=== PATIENT | female | born 2000 | race Caucasian/White ===

== ENCOUNTER 2019-10-01 18:35 | Emergency (ER) | payer BC, SELFPAY ==
[2019-10-01 18:48] VITALS: BP 109/67; RESP 20; TEMP 37.1; O2SAT 100
--- NOTE | 2019-10-01 18:50 | ED.GENADULT ---
HPI - General Adult General Chief complaint: Upper Respiratory Infection Stated complaint: cough/ear pain/sinus Time Seen by Provider: 10/01/19 18:51 Source: patient and RN notes reviewed Mode of arrival: ambulatory Limitations: no limitations History of Present Illness HPI narrative: 19-year-old female presents with male guess (kenney to speak freely while present), Yesenia complains of upper respiratory infection, facial congestion, facial pressure, bilateral ear clogging and otalgia, cough, and intermittent wheezing for the past 7 days. Fani[place] cold and cough (last today at 15:00) without relief. Symptoms increased over the past 1-2 days. No facial swelling. Dry cough. Nasal congestion and rhinorrhea. No chest pain or shortness of breath. No exacerbating factors. Denies fever or chills. Denies nausea, vomiting, and abdominal pain. Tolerating po intake well. Remains active. [place] denies being , LMP 2 weeks ago and uses control. Some parts of this dictation were generated by voice recognition software and may contain typographical and/or grammatical inaccuracies. Related Data Home Medications Medication Instructions Recorded Confirmed norethindrone-e.estradiol-iron 1 tablet PO DAILY 10/01/19 10/01/19 [[place] Fe 1.5/30 (28)] Allergies Allergy/AdvReac Type Severity Reaction Status Date / Time No Known Allergies Allergy Unknown Verified 10/01/19 18:48 Review of Systems Review of Systems: Narrative: CONSTITUTIONAL: Denies fever, chills, sweats. EYES: Denies visual changes, redness, discharge. ENT: Complains of rhinorrhea, congestion, facial congestion and pressure, bilateral otalgia. Denies sore throat. CARDIOVASCULAR: Denies chest pain, palpitations, edema. RESPIRATORY: Denies dyspnea. Complains of dry cough, wheezing. GASTROINTESTINAL: Denies abdominal pain, nausea, vomiting, diarrhea. GENITOURINARY: Denies dysuria, hematuria, abnormal discharge SKIN: Denies rash or itching. MUSCULOSKELETAL: Denies acute back pain, joint pain, or myalgia. NEUROLOGIC: Denies numbness or focal weakness. PSYCHIATRIC: Denies anxiety or depression. [facility] Surgical History Surgical History (Updated 10/01/19 @ 18:56 by JAMES Iraheta) History of tonsillectomy Comments At time of signature, agree with nurse past medical, surgical, social, and family history. There is no relevant family history pertinent to the presenting complaint. Exam Narrative: Exam Narrative: GENERAL: This is a well-nourished, well-developed patient, in no apparent distress. Talks in full sentences and ambulates with steady gait without dyspnea. HEAD: normocephalic, atraumatic. EYES: PERRL. Sclera clear/white. Vision is grossly intact. EARS: External ears normal, auditory canals clear and without drainage, TMs normal without perforation. Hearing grossly intact. NOSE: External nose normal with no obvious nasal discharge, nares with mild redness and enlarged turbinates, clear rhinorrhea. SINUSES: Moderate tenderness upon palpation to maxillary sinus. MOUTH: moist mucous membranes. Geographic tongue THROAT: Mucous membranes moist, posterior pharynx clear. PND, mild erythema, no tonsils. No drainage, No drooling, trismus, or neck swelling. NECK: Neck supple, non-tender without lymphadenopathy, masses or thyromegaly. CARDIOVASCULAR: Regular rate and rhythm without murmurs, gallops, or rubs. RESPIRATORY: Clear to auscultation. Breath sounds equal bilaterally. No wheezes, rales, or rhonchi. GASTROINTESTINAL: Abdomen soft, non-tender, nondistended. Bowel sounds are active. No hepato-splenomegaly, or palpable masses. No guarding. SKIN: warm, intact with no suspicious lesions or rash, good texture and turgor. NEURO: awake, alert, and oriented to person, place and time. There were no obvious focal neurologic abnormalities. EXTREMITIES: No clubbing, cyanosis, or edema. Soha Coma Scale Eye Opening: Spontaneous 4 Soha Coma Scale Motor:
== END 2019-10-01 19:10 | disposition home or self-care (01) ==
PROVIDERS: Emergency Provider Nurse Practitioner Family
DX: J40 Bronchitis, not specified as acute or chronic (principal); J01.00 Acute maxillary sinusitis, unspecified
CPT/HCPCS: 99213; G0463

== ENCOUNTER 2019-10-14 19:31 | Emergency (ER) | payer BC, SELFPAY ==
[2019-10-14 19:40] VITALS: BP 153/88; PULSE 95; RESP 18; TEMP 36.8; O2SAT 100
--- NOTE | 2019-10-14 20:22 | ED.BACK ---
HPI - Back Pain/Injury General Chief Complaint: Urogenital-Female Stated Complaint: UTI symptoms Source: patient and RN notes reviewed Mode of arrival: ambulatory Limitations: no limitations History of Present Illness HPI Narrative: The patient, non-smoker/nondrinker, presents with back pains. Patient states she was seen here the end of September about 10 days ago and treated for upper respiratory infection with amoxicillin, prednisone and other supportive medications-for which she seems to state that is improved. She now has 1/2-week history of low back pain which is also associated with large joint myalgias. She complains of pain in her large joints hips >bilateral armpits, knees. She said this also involved the small joints of her hands yesterday, which seems improved. No fever, rash, weight loss, vomiting/diarrhea, frequency/dysuria, vaginal discharge, mucosal /eye changes. joint pains are mild, worse upon awakening the morning, slightly better with activity. Discussed possible causes [ post infectious, immune, acquired ], advised to go to [facility], [facility] for higher level testing and treatment Related Data Allergies Allergy/AdvReac Type Severity Reaction Status Date / Time No Known Allergies Allergy Unknown Verified 10/01/19 18:48 Review of Systems Review of Systems: Narrative: General/Constitutional: No weight loss,fever Eyes: N0: Redness,discharge Ears/Nose/Throat: No: Epistaxis,ear discharge Respiratory: Denies: Hemoptysis Gastrointestinal: No Vomiting, Bleeding-rectal Skin: No Lumps, eruption Neurologic: No Focal Weakness,Sz Hematologic: Denies: Petechiae/Purpura PMFSH Surgical History Surgical History (Updated 10/01/19 @ 18:56 by JAMES Iraheta) History of tonsillectomy Social History Social History Gender identity (if verbalized by the patient): Female Comments At time of signature, agree with nursing past medical, surgical, social and family history. There is no relevant family history pertinent to the presenting complaint Exam Narrative: Exam Narrative: General Appearance: Well appearing, No distress EYE: PERRLA, Conjunctiva clear Ears: External ear normal Nose: Normal nose Mouth/Throat: Normal appearing, Normal lips Neck: Supple Respiratory: Airway patent, No respiratory distress Cardiovascular: RRR Abdomen: Soft, Non-tender, No massess, No organomegaly s Musculoskeletal: Full strength & ROM Skin: Warm, Dry Neurological: A&O x3, CN II-X intact Psychiatric: Normal mood, Normal affect Course Vital Signs Vital signs: Vital Signs Temperature 98.3 F 10/14/19 19:40 Pulse Rate 95 10/14/19 19:40 Respiratory Rate 18 10/14/19 19:40 Blood Pressure 153/88 H 10/14/19 19:40 Pulse Oximetry 100 10/14/19 19:40 Temperature 98.3 F 10/14/19 19:40 Pulse Rate 95 10/14/19 19:40 Respiratory Rate 18 10/14/19 19:40 Blood Pressure 153/88 H 10/14/19 19:40 Pulse Oximetry 100 10/14/19 19:40 MDM - Back Pain/Injury Lab Data Labs: Urine Glucose Negative Reference Range: Negative Urine Bilirubin Negative Reference Range: Negative Urine Ketone Negative Reference Range: Negative Urine Specific [place] 1.020 Reference Range:1.001-1.035 Urine Blood Negative Reference Range: Negative * * Urine pH 7.0 Reference Range: 5.0-9.0 Urine Protein Negative Reference Range: Negative Urine Urobilinogen 0.2 Reference Range: 0.2-1.0 Urine Nitrate Negative Reference Range: Negative Urine Leukocyte Negative Reference Range: Negative Urine Color Yellow Reference Range: Yellow
== END 2019-10-14 20:23 | disposition home or self-care (01) ==
PROVIDERS: Emergency Provider Emergency Medicine; PCP Pediatrics
DX: M12.9 Arthropathy, unspecified (principal)
CPT/HCPCS: 81003; 99213; G0463

== ENCOUNTER 2021-08-15 10:03 | Emergency (ER) | payer BC, SELFPAY ==
[2021-08-15 10:17] VITALS: BP 128/76; PULSE 103; RESP 18; TEMP 36.5; O2SAT 100
--- NOTE | 2021-08-15 10:24 | ED.URI ---
HPI - URI/Sore Throat General Chief Complaint: Upper Respiratory Infection Stated Complaint: Cough,Congestion Time Seen by Provider: 08/15/21 10:24 Source: patient Mode of arrival: ambulatory Limitations: no limitations History of Present Illness HPI Narrative: Yesenia Oro is a 21 yo female with no PMH whp comes with cough and runny nose that started last week. She has not been vaccinated nor has she got a Covid test. States she felt like she had some upper respiratory symptoms and was taking Mucinex; now she feels little wheezy and she usually has bronchitis each year Related Data Home Medications Medication Instructions Recorded Confirmed norethindrone-e.estradiol-iron 1 tablet PO DAILY 08/15/21 08/15/21 [Aurovela Fe 1.01/30 (28)] Allergies Allergy/AdvReac Type Severity Reaction Status Date / Time No Known Allergies Allergy Unknown Verified 08/15/21 10:24 Review of Systems Review of Systems: CONSTITUTIONAL: Denies fever, chills, sweats. EYES: Denies visual changes, redness, discharge. ENT: Denies rhinorrhea, congestion, sore throat, otalgia. CARDIOVASCULAR: Denies chest pain, palpitations, edema. RESPIRATORY: Denies dyspnea, has wheezing, has cough GASTROINTESTINAL: Denies abdominal pain, nausea, vomiting, diarrhea. GENITOURINARY: Denies dysuria, hematuria, abnormal discharge SKIN: Denies rash or itching. NEUROLOGIC: Denies numbness, or focal weakness. PSYCHIATRIC: Denies anxiety or depression. PMFSH Past Medical History Medical History History of bronchitis Surgical History Surgical History History of tonsillectomy Social History Social History (Updated 08/15/21 @ 10:30 by Chacha Chavez CNP) Smoking status: Current every day smoker Tobacco type: e-cigarettes/vaping Alcohol intake: current Alcohol use details: Very light drinker Substance use: current Substance use type: marijuana Gender identity (if verbalized by the patient): Female Comments At time of signature, I agree with nursing past medical, surgical, social and family history. There is no relevant family history pertinent to the presenting complaint. Exam Narrative: GENERAL: This is a well-nourished, well-developed patient, in no distress. HEAD: normocephalic, atraumatic. EYES: Sclera clear/white. Vision is grossly intact. EARS: External ears normal, Hearing grossly intact. NOSE: External nose normal without nasal discharge, nares without redness, no rhinorrhea. THROAT: Mucous membranes moist, posterior pharynx mild erythema NECK: Neck supple, non-tender CARDIOVASCULAR: Tachycardic rate and rhythm without murmurs, gallops, or rubs. RESPIRATORY: Clear to auscultation. Breath sounds equal bilaterally. No wheezes, rales, or rhonchi. GASTROINTESTINAL: Abdomen soft, SKIN: warm, intact with no suspicious lesions or rash, good texture and turgor. NEURO: awake, alert, and oriented to person, place and time. There were no obvious focal neurologic abnormalities. Steady gait EXTREMITIES: Normal range of motion. BACK: Nontender without deformity Course Course Emergency Course: Non-vaccinated Patient here for cough and chest congestion that started last week Covid test done- negative Started on prednisone, albuterol inhaler, Tessalon Vital Signs Vital signs: Vital Signs Temperature 97.7 F 08/15/21 10:17 Pulse Rate 103 H 08/15/21 10:17 Respiratory Rate 18 08/15/21 10:17 Blood Pressure 128/76 08/15/21 10:17 Pulse Oximetry 100 08/15/21 10:17 Temperature 97.7 F 08/15/21 10:17 Pulse Rate 103 H 08/15/21 10:17 Respiratory Rate 18 08/15/21 10:17 Blood Pressure 128/76 08/15/21 10:17 Pulse Oximetry 100 08/15/21 10:17 MDM - URI/Sore Throat Differential Diagnosis Differential diagnosis: Likely upper respiratory infection, viral infection, bronchitis, pharyngitis and other
== END 2021-08-15 11:00 | disposition home or self-care (01) ==
PROVIDERS: Emergency Provider Nurse Practitioner; PCP Physician Assistant
DX: J06.9 Acute upper respiratory infection, unspecified (principal); F17.290 Nicotine dependence, other tobacco product, uncomplicated; Z20.822 Contact with and (suspected) exposure to COVID-19
CPT/HCPCS: 87426; 99213; C9803; G0463

== ENCOUNTER 2022-07-19 13:26 | Emergency (ER) | payer BC, SELFPAY ==
--- NOTE | ~2022-07-19 | XR_ITS ---
EXAMINATION: XR chest 2V DATE: 07/19/2022 13:56 INDICATION: Cough and shortness of breath TECHNIQUE: PA and lateral views of the chest are obtained. COMPARISON: 12/16/2015 FINDINGS: The lungs are free of acute opacities. No pleural effusion or pneumothorax. The cardiomedia stinal silhouette is normal. The visualized bones and soft tissues are unremarkable. IMPRESSION: 1. No acute cardiopulmonary abnormality. Reviewed, dictated and finalized at location F. [facility]
[2022-07-19 13:33] VITALS: BP 138/86; PULSE 100; RESP 18; TEMP 36.4; O2SAT 99
--- NOTE | 2022-07-19 14:02 | ED.URI ---
HPI - URI/Sore Throat General Chief Complaint: Upper Respiratory Infection Stated Complaint: Shortness of Breath Time Seen by Provider: 07/19/22 13:54 Source: patient Mode of arrival: ambulatory Limitations: no limitations History of Present Illness HPI Narrative: Patient presents today with a 3 week history of shortness of breath and wheezing, especially when she lies flat, with a one-week history of productive cough. She was seen by her PCP 2 days ago and was given a prescription for azithromycin and albuterol inhaler. States her cough has become less productive since starting on the azithromycin. Denies fever. States he overall inhaler is not providing relief of wheezing or shortness of breath. Denies any history of asthma or COPD. Patient smokes cigarettes and marijuana Related Data Home Medications Medication Instructions Recorded Confirmed norethindrone 1.5 mg-ethinyl 1 tablet PO DAILY 08/15/21 07/19/22 estradiol 30 mcg(21)/iron 75 mg(7) tablet (Aurovela Fe 1.5/30 (28)) Allergies Allergy/AdvReac Type Severity Reaction Status Date / Time No Known Allergies Allergy Unknown Verified 07/19/22 13:42 Review of Systems Review of Systems: CONSTITUTIONAL: Denies body aches, fever, chills, or sweats. EYES: Denies visual changes, redness, or discharge. ENT: Denies rhinorrhea, congestion, sore throat, or otalgia. CARDIOVASCULAR: Denies chest pain, palpitations, or edema. RESPIRATORY: + cough, wheezing, shortness of breath GASTROINTESTINAL: Denies abdominal pain, nausea, vomiting, or diarrhea. GENITOURINARY: Denies dysuria or hematuria. SKIN: Denies rash, itching, or wounds. MUSCULOSKELETAL: Denies back pain, joint pain, or myalgia. NEUROLOGIC: Denies headache, numbness, tingling, or weakness. PSYCH: Denies depression or anxiety. [facility] Past Medical History Medical History History of bronchitis Surgical History Surgical History History of tonsillectomy Social History Social History Smoking status: Current every day smoker Tobacco type: e-cigarettes/vaping Alcohol intake: current Alcohol use details: Very light drinker Substance use: current Substance use type: marijuana Gender identity (if verbalized by the patient): Female Comments At time of signature, I have reviewed and agree with nursing past medical, surgical, social and family history unless otherwise noted. Please see nursing chart for further information. There is no relevant family history pertinent to the presenting complaint Exam Narrative: GENERAL: Well-appearing, well-nourished, and in no acute distress. HEAD: Normocephalic, atraumatic. EYES: EOMI. No redness or drainage. Conjunctivae normal. ENT: Mucous membranes pink and moist. Nares clear. No rhinorrhea. TMs normal bilaterally. Throat normal. Uvula midline. NECK: Normal AROM. Supple. No lymphadenopathy. CHEST: No respiratory distress. Slight inspiratory wheezing in the left upper and lower lobe, otherwise clear HEART: Regular rate and rhythm. No murmur appreciated. Normal peripheral pulses. EXTREMITIES: Normal range of motion. No edema. SKIN: Warm, dry, no rash. Capillary refill normal. Normal skin turgor. NEURO: No focal deficits. Alert and oriented x3. Gait steady. PSYCH: Normal affect. No signs of depression or anxiety. Course Course Level of Care: Express Care Visit Vital Signs Vital signs: Vital Signs Temperature 97.5 F L 07/19/22 13:33 Pulse Rate 100 07/19/22 13:33 Respiratory Rate 18 07/19/22 13:33 Blood Pressure 138/86 07/19/22 13:33 Pulse Oximetry 99 07/19/22 13:33 Oxygen Delivery Room Air 07/19/22 13:33 Temperature 97.5 F L 07/19/22 13:33 Pulse Rate 100 07/19/22 13:33 Respiratory Rate 18 07/19/22 13:33 Blood Pressure 138/86 11
== END 2022-07-19 14:18 | disposition home or self-care (01) ==
PROVIDERS: Emergency Provider Nurse Practitioner; PCP Physician Assistant
DX: J40 Bronchitis, not specified as acute or chronic (principal); F17.290 Nicotine dependence, other tobacco product, uncomplicated
CPT/HCPCS: 71046; 99213; G0463

== ENCOUNTER 2024-02-18 17:33 | Emergency (ER) | payer BC, SELFPAY ==
--- NOTE | ~2024-02-18 | XR_ITS ---
EXAM: XR ankle RT min 3V, XR foot RT min 3V DATE: 02/18/2024 18:01 HISTORY: rolled ankle pain rt lateral foot/and rt lateral ankle . COMPARISON: 07/16/2012. FINDINGS: Normal mineralization. No fracture or dislocation. No lytic or blastic lesion. Joint space s are maintained. No erosion or periosteal change. Soft tissues within normal limits. IMPRESSION: No acute osseous finding in the right ankle or foot. Reviewed, dictated and finalized at location K. IMPRESSION: No acute osseous finding in the right ankle or foot.
--- NOTE | 2024-02-18 17:38 | ED.LOWEXIN ---
HPI - Extremity Injury (Lower) General Chief Complaint: Extremity Injury, Lower Stated Complaint: rt ankle injury Time Seen by Provider: 02/18/24 17:36 Source: patient Mode of arrival: ambulatory Limitations: no limitations History of Present Illness HPI Narrative: Patient is a 23-year-old female presents with right ankle pain after rolling it last night. Patient reports swelling to lateral side of foot. Patient still able to ambulate unassisted. Patient reports pain to 3rd 4th and 5th toes radiating from base of 5th metatarsal. Patient has taken ibuprofen twice. Patient's elevated and iced today. Related Data Home Medications Medication Instructions Recorded Confirmed norethindrone 1.5 mg-ethinyl 1 tablet PO DAILY 08/15/21 02/18/24 estradiol 30 mcg(21)/iron 75 mg(7) tablet (Aurovela Fe 1.5/30 (28)) Allergies Allergy/AdvReac Type Severity Reaction Status Date / Time No Known Allergies Allergy Unknown Verified 07/19/22 13:42 Review of Systems Review of Systems: All systems reviewed & are unremarkable except as noted in HPI and below Constitutional: Constitutional: Denies body ache(s), Denies chills, Denies fatigue, Denies fever(s), Denies headache(s), Denies malaise and Denies weakness Eyes: Eyes: Denies blurry vision, Denies irritation and Denies loss of vision ENT: Denies otalgia, Denies headache(s), Denies nasal discharge, Denies sinus pain and Denies sore throat Cardiovascular: Cardiovascular: Denies chest pain, Denies irregular heart rhythm and Denies dyspnea Respiratory: Respiratory: Denies dyspnea Gastrointestinal: Gastrointestinal: Denies abdominal pain, Denies melena, Denies hematochezia, Denies diarrhea, Denies nausea and Denies vomiting Musculoskeletal: Musculoskeletal: Denies back pain, Denies myalgias, Reports arthralgias and Reports joint swelling Integumentary/Breasts: Skin/Breast: Denies pruritus and Denies rash Neurologic: Denies headache(s), Denies loss of vision and Denies weakness Psychiatric: Psychiatric: Reports no additional psychiatric complaints Endocrine: Endocrine: Denies fatigue PMFSH Past Medical History Medical History History of bronchitis Surgical History Surgical History History of tonsillectomy Social History Social History Smoking status: Current every day smoker Tobacco type: e-cigarettes/vaping Alcohol intake: current Alcohol use details: Very light drinker Substance use: current Substance use type: marijuana Gender identity (if verbalized by the patient): Female Comments At time of signature, agree with nursing past medical, surgical, social and family history. There is no relevant family history pertinent to the presenting complaint. Exam Const: General: cooperative, healthy appearing, comfortable, no acute distress and well nourished Nutritional Appearance: well nourished Orientation/consciousness: patient oriented x3 Limitations: no limitations HENMT: Head: normal to inspection, normocephalic and atraumatic Ears: hearing grossly normal bilaterally and external ears normal Face/Nose/Sinus: Normal external nose present, normal facial exam and face symmetric Face and sinus: normal facial exam and face symmetric Mouth: Yes lip normal Eyes: General: appearance normal, both eyes and all related structures Alignment and Position: alignment normal and position normal Periorbital: periorbital findings normal Eyelids: eyelids normal Pupils: Equal, round and reactive pupils present EOM: EOMs intact bilaterally Neck: Neck: normal visual inspection, full ROM and supple Chest: Chest palpation & inspection: normal inspection of the chest Resp: Effort & Inspection: normal respiratory effort and able to speak in complete sentences Auscultation: clear to auscultation bilater
[2024-02-18 17:42] VITALS: BP 136/80; PULSE 102; RESP 16; TEMP 36.8; O2SAT 98
== END 2024-02-18 18:27 | disposition home or self-care (01) ==
PROVIDERS: Emergency Provider Nurse Practitioner Family; PCP Registered Nurse
DX: S93.401A Sprain of unspecified ligament of right ankle, initial encounter (principal); S96.911A Strain of unspecified muscle and tendon at ankle and foot level, right foot, initial encounter; X50.9XXA Other and unspecified overexertion or strenuous movements or postures, initial encounter; F17.290 Nicotine dependence, other tobacco product, uncomplicated
CPT/HCPCS: 73610; 73630; 99213; G0463

== ENCOUNTER 2025-08-19 13:40 | Emergency (ER) | payer BC, SELFPAY ==
[2025-08-19 13:49] VITALS: BP 118/82; PULSE 85; RESP 18; TEMP 36.5; O2SAT 99
--- NOTE | 2025-08-19 14:14 | ED_ITS ---
HPI - Ear Problem General Chief complaint: Ear Stated complaint: L Ear Time Seen by Provider: 08/19/25 14:00 Source: patient and RN notes reviewed Mode of arrival: ambulatory Limitations: no limitations History of Present Illness HPI Narrative: 25-year-old female presents Express Care complaining of left ear pain for 3 days. His said 2 weeks ago she had an upper respiratory infection was prescribed antibiotics. Patient says those were symptoms have resolved however she has now developed left ear pain. She also reports having tinnitus in her ear she says she has had a history of intermittent tinnitus throughout the year she also reports skin and associated vertigo with the tinnitus lately. Patient has any nausea or vomiting, her primary prescribe there is a valid pain patches for it. Patient reports the pain is in the left ear radius and left jaw left side of her face. Patient denies any fevers body aches, chills, any other upper respiratory symptoms, cough, chest pain, difficulty breathing, vision changes, headaches, vomiting, diarrhea, abdominal pain, or other symptoms. Patient tried some Motrin without relief. Patient does report she grinds her teeth at night. Patient is currently being dizzy. Related Data Home Medications ?Medication ?Instructions ?Recorded ?Confirmed ?Last Taken ?Type norethindrone 1.5 mg-ethinyl 1 tablet PO DAILY 1 08/19/25 Unknown History estradiol 30 mcg(21)/iron 75 mg(7) tablet (Aurovela Fe 1.5/30 (28)) Allergies Allergy/AdvReac Type Severity Reaction Status Date / Time No Known Allergies Allergy Unknown Verified 08/19/25 13:42 Review of Systems Review of Systems: CONSTITUTIONAL: Denies fever, chills, or sweats. EYES: Denies visual changes, redness, or discharge. ENT: Denies rhinorrhea, congestion, sore throat,. Positive for otalgia and tinn itus. CARDIOVASCULAR: Denies chest pain, palpitations, dizziness, lightheadedness, or edema. RESPIRATORY: Denies cough or dyspnea. GASTROINTESTINAL: Denies abdominal pain, nausea, vomiting, or diarrhea. GENITOURINARY: Denies dysuria or hematuria. SKIN: Denies rash or itching. MUSCULOSKELETAL: Denies back pain, joint pain, or myalgia. NEUROLOGIC: Denies headache, numbness, or weakness. PSYCHIATRIC: Denies anxiety or depression. All other systems reviewed are negative, except as documented in HPI. [facility] Past Medical History Medical History History of bronchitis Surgical History Surgical History History of tonsillectomy Social History Social History Smoking status: Current every day smoker Tobacco type: e-cigarettes/vaping Alcohol intake: current Alcohol use details: Very light drinker Substance use: current Substance use type: marijuana Gender identity (if verbalized by the patient): Female Comments At the time of my signature, I reviewed and agree with the nursing past medical, surgical, social, and family history. There is no relevant family history pertinent to the patient complaint. Exam Narrative: GENERAL: This is a well-nourished, well-developed adult, in no apparent distress. They are non ill-appearing, nontoxic appearing. HEAD: normocephalic, atraumatic. EYES: Sclera clear/white. Conjunctiva normal. Vision is grossly intact. Extraocular movements intact. Pupils PERRLA no nystagmus. EARS: External ears normal, auditory canals clear and without drainage, TMs normal without perforation. Hearing grossly intact. NOSE: External nose normal with no obvious nasal discharge, nasal turbinates without redness, no rhinorrhea. THROAT: Mucous membranes moist, posterior pharynx clear, without erythema or swelling. Uvula midline. OROPHARYNX: Teeth intact. Good dentition. Tongue midline. No trismus. Left TMJ tender to palpate. Clicking or popping. NECK: Neck supple, non-tender without lymphadenopathy, masses or thyromegaly. CARDIOVASCULAR: Regular rate and rhythm RESPIRATORY: Respiratory rate normal, respiratory effort nonlabored, no respiratory distress SKIN: warm, Dry, intact with no suspicious lesions or rash, good texture and turgor. NEURO: awake, alert, and oriented to person, place and time. There were no obvious focal neurologic abnormalities. Cranial nerve 2-12 grossly intact. EXTREMITIES: No joint tenderness, effusion, or edema noted. BACK: Nontender without deformity. Course Course Level of Care: Express Care Visit Vital Signs Vital signs: Vital Signs Temperature 97.7 F 08/19/25 13:49 Pulse Rate 85 08/19/25 13:49 Respiratory Rate 18 08/19/25 13:49 Blood Pressure 118/82 08/19/25 13:49 Pulse Oximetry 99 08/19/25 13:49 Oxygen Delivery Room Air 08/19/25 13:49 Temperature 97.7 F 08/19/25 13:49 Pulse Rate 85 08/19/25 13:49 Respiratory Rate 18 08/19/25 13:49 Blood Pressure 118/82 08/19/25 13:49 Pulse Oximetry 99 08/19/25 13:49 Oxygen Delivery Room Air 08/19/25 13:49 MDM MDM Narrative Medical decision making narrative: No evidence of infection. Left TMJ is tender. However patient is also reporting symptoms of tinnitus and vertigo. Could be an underlying vestibular disorder TMJ cannot be excluded. Advised patient to wear a mouth guard at night to stop with grinding her teeth. Given the pain she is having will give her short course of prednisone close follow-up with PCP, gave her information for local ENT, informed her she may needed peripheral from her primary care provider. Discussed supportive care. Discussed physical exam findings. Advised supportive measures and signs/symptoms to go to the ER. Pt is appropriate for outpt treatment and f/u. Differential Diagnosis Differential Diagnosis: TMJ disorder, earache, vestibular disorder, Meniere's disease, vertigo, otitis media, otitis externa Critical Care Time Critical Care Time Critical Care Time: No Discharge Plan Discharge Clinical Impression: Left ear pain Patient Disposition: Home Condition: Stable Instructions: Temporomandibular Disorder (ED), Earache (ED) Additional Instructions: Is no evidence of infection to your ear today. This may be related to TMJ or an inner ear problem. Please take the prednisone as directed. You may alternate with Tylenol ibuprofen as needed for pain. Follow instructions on the bottle. Consider wearing a mouth guard at night for grinding your teeth. Avoid any abnormal posturing of your jaw, nail biting, excessive chewing, or chewing gum. Follow-up with PCP or ENT in 3-5 days. Return the ER for any severe dizziness, vomiting, fevers, severe pain, or any serious concerns. Patient Language: Faroese Prescriptions: New prednisone 20 mg tablet 40 mg PO DAILY 5 Days Qty: 10 0RF No Action norethindrone-e.estradiol-iron [Aurovela Fe 1.5/30 (28)] 1.5 mg-30 mcg (21)/75 mg (7) tablet 1 tablet PO DAILY Follow-up/Referrals: Waqas Hale MD [Physician, Ear, Nose, Throat] - 1 Week Josh,Bethany Valdovinos APRN [Primary Care Provider, Unknown] Time of Disposition: 14:08
--- OUTSIDE RECORDS SUMMARY | 2025-08-19 16:10 | XMS_ITS | Encounter Summary ---
Author Organization [facility] Address [address] [place] [address] Care Team Providers Care Acid Etch Operator Name Role Phone Bethany Moreno APRN Primary Care Provider [phone]- [phone] Encounter Details Date Type Department Care Team (Late st Contact Info) Description 09/17/2023 AndroJekt Message Enc [facility] Medical Group Family & Internal Medicine [facility] [id number] [place] [phone] Bethany Moreno APRN [id number] [place] [address] Yeast Infection Social History Tobacco Use Types Packs/Day Years Used Date Smoking Tobacco: Former Passive Smoke Exposure: Current Smokeless Tobacco: Never Comments:minmal use Alcohol Use Standard Drinks/Week Comments Yes 0 (1 standard drink = 0.6 oz pur e alcohol) social PHQ-2 Answer Date Recorded Patient Health Questionnaire-2 Score 0 09/14/2023 Hunger Vital Sign Answer Date Recorded Within the past 12 months, y ou worried that your food would run out before you got the money to buy more. Never true 09/24/19 23 Within the past 12 months, t he food you bought just didn't last and you didn't have money to get more. Never true 09/24/2022 PRAPARE - Transportation Answer Date Re corded In the past 12 months, has l ack of transportation kept you from medical appointments or from getting medications? No 09/04 In the past 12 months, has l ack of transportation kept you from meetings, work, or from getting things needed for daily living? No 09/24/2022 Housing Stability Vital Sign Answer Eusebio e Recorded In the last 12 months, was t here a time when you were not able to pay the mortgage or rent on time? No 09/24/2022 In the last 12 months, how many places have you lived? 1 09/24/2022 In the last 12 months, was t here a time when you did not have a steady place to sleep or slept in a mcfp (including now)? No 09/24/2022 Comments No Sex and Gender Information Value Date Recorded Sex Assigned at Not on file Legal Sex Female 7:00 PM CDT Gender Identity Not on file Sexual Orientation Not on file documented as of this encounter Plan of Treatment Upcoming Encounters Date Type Department Care Team (Late st Contact Info) Description 10/13/2025 7:00 AM COMPUTER ART INSTRUCTOR Office Visit [facility] Medical Group Family & Internal Medicine [facility] [address] [place] [address] Bethany Moreno APRN [id number] [place] [address] documented as of this encounter Visit Diagnoses Not on filedocumented in this encounter Additional Health Concerns Assessment Noted Time PHQ-9 Depression Total Score: 0 09/28/19 22 9:57 AM COMPUTER ART INSTRUCTOR documented as of this encounter Care Teams Acid Etch Operator Relationship Specialty Start Date End Date Bethany Moreno APRN [id number] [address] PCP - General NURSE PRACTITIONER 09/20/22 documented as of this encounter
--- OUTSIDE RECORDS SUMMARY | 2025-08-19 16:10 | XMS_ITS | Encounter Summary ---
Author Organization [facility] Address [address] [place] [address] Care Team Providers Care Game Breeding Farm Manager Name Role Phone Bethany Moreno APRN Primary Care Provider [phone]- [phone] Encounter Details Date Type Department Care Team (Late st Contact Info) Description 11/22/2023 Unicon Message Enc [facility] Medical Group Family & Internal Medicine [facility] [address] [place] [address] Lino [facility] Provider control Social History Tobacco Use Types Packs/Day Years [...] place to sleep or slept in a half-way (including now)? No 09/24/2022 Comments No Sex and Gender Information Value Date Recorded Sex Assigned at Not on file Legal Sex Female 7:00 PM CDT Gender Identity Not on file Sexual Orientation Not on file documented as of this encounter Plan of Treatment Upcoming Encounters Date Type Department Care Team (Late st Contact Info) Description 10/13/2025 7:00 AM GUIDE VISITOR Office Visit [facility] Medical Group Family & Internal Medicine [facility] [id number] [place] [phone] Bethany Moreno APRN [address] [place], [place] [id number] documented as of this encounter Visit Diagnoses Not on filedocumented in this encounter Additional Health Concerns Assessment Noted Time PHQ-9 Depression Total Score: 0 09/28/19 22 9:57 AM GUIDE VISITOR documented as of this encounter Care Teams Game Breeding Farm Manager Relationship Specialty Start Date End Date Bethany Moreno APRN [address] [place] [id number] PCP - General NURSE PRACTITIONER 09/20/22 documented as of this encounter
--- OUTSIDE RECORDS SUMMARY | 2025-08-19 16:10 | XMS_ITS | Clinical Summary ---
Author Organization [email or web address] Address [address] [facility] [place] [address] Care Team Providers Care Application Packager Name Role Phone Bethany Moreno THERMOSPRAY OPERATOR-URBAN FORESTER Primary Care Provider Source Comments [email or web address],non-owned Affiliates and Associated Physician Practices is amultiple site organization consisting of ambulatory clinics and hospital sitesin [place], [place], [place] and [place]. This disclosure is being madepursuant to the Care Everywhere program and may not contain all information available regarding this patient. Last updated 18.[email or web address] Allergies No known active allergies Medications * Be aware that medications may not be up to date on this document. Alwaysverify current medications with the patient. norethin-eth estradiol-FE (Loestrin Fe 1.530) 1.5-30 MG-MCG tablet Take 1 (one) tablet by mouth once daily 4 Active Probiotic Product CAPS Active diclofenac sodium EC (Voltaren) 75 MG tablet Take 1 (one) tablet by mouth 2 times daily 4 Active acetaminophen (Tylenol) 500 MG tablet Take 1 (one) tablet by mouth every 6 hours as needed for Fever or Pain Maximum allowable Acetaminophen amount = 4 Grams (4000 mg) / 24 hours. 30 tablet 4 Active Additional Information Patient not taking.Reported on 06/27/2024 hydrOXYzine HCl (Atarax) 25 MG tablet Take 1 (one) tablet by mouth every 6 hours 4 Active clobetasol (Temovate) 0.05 % ointmentIndica tions:Allergic reaction, initial encounter Apply to affected area 2 times daily 60 g 4 Active Additional Information Patient not taking.Reported on 06/27/2024 nystatin (Mycostatin) 813125 UNIT/GM cream Apply to affected area 3 times daily 30 g 4 Active fluconazole (Diflucan) 200 MG tabletIndicati ons:Skin rash Take 1 (one) tablet by mouth once daily 7 tablet 4 Active Active Problems Problem Noted Date Diagnosed Date Class 2 obesity due to exces s calories without serious comorbidity with body mass index (BMI) of 35.0 to 35.9 in adult 06/25/2023 Pes planus of both feet 07/26/2015 Left-sided low back pain without sciatica 2014 Sprain of wrist, right 07/22/2013 Triangular fibrocartilage complex injury 013 Resolved Problems Problem Noted Date Diagnosed Date Resolved Date Finger fracture 01/05/2011 01/05/2011 Social History Tobacco Use Types Packs/Day Years Used Date Smoking Tobacco: Never Tobacco Cessation:Counseling Given: Not Answered Alcohol Use Standard Drinks/Week Comments Yes 0 (1 standard drink = 0.6 oz pur e alcohol) Rarely Comments No Sex and Gender Information Value Date Recorded Sex Assigned at Not on file Legal Sex Female 11:34 AM INTEGRATED CIRCUIT LAYOUT DESIGNER Gender Identity Not on file Sexual Orientation Not on file Last Filed Vital Signs Vital Sign Reading Time Taken Comments Blood Pressure 109/79 06/27/2024 8:07 AM CDT Pulse 103 06/27/2024 8:07 AM CDT Temperature 36.8 C (98.3 F) 06/27/2024 8:07 AM CDT Respiratory Rate 17 05/13/2024 11:52 AM CDT Oxygen Saturation 98% 06/27/2024 8:07 AM CDT Inhaled Oxygen Concentration - - Weight 83.5 kg (184 lb) 06/27/2024 8:07 AM CDT Height 152.4 cm (5') 06/27/2024 8:07 AM CDT Body Mass Index 35.94 06/27/2024 8:07 AM CDT Plan of Treatment Health Maintenance Due Date Last Done Comments HIV SCREENING 2013 HEPATITIS C SCREENING 06/03/2016 DTAP/TDAP/TD VACCINES (1 - Tdap) 2017 HEPATITIS B VACCINE (1 of 3 - 19+ 3-dose series) 2017 DEPRESSION SCREENING 09/03/2024 PAP SMEAR 04/27/2025 04/27/2022 COVID-19 VACCINE (1 - 2024-2 6 season) 2025 INFLUENZA VACCINE (#1) 2025 HPV VACCINE (1 - 3-dose SCDM series) 2025 ZOSTER VACCINE (1 of 2) 2048 HIB VACCINE Aged Out No longer eligi ble based on patient's age to complete this topic MENINGOCOCCAL (Group B) VACC INE SHARED DECISION-MAKING Aged Out No longer eligibl e based on patient's age to complete this topic MENINGOCOCCAL GROUPS A/C/Y/W VACCINE Aged Out No longer eligible b ased on patient's age to complete this topic PNEUMOCOCCAL VACCINE Aged Out No long er eligible based on patient's age to complete this topic Insurance [facility] Care Teams Application Packager Relationship Specialty Start Date End Date Bethany Moreno, THERMOSPRAY OPERATOR-URBAN FORESTER [id number] [place] [address] PCP - General Nurse Practitioner 05/16/24
--- OUTSIDE RECORDS SUMMARY | 2025-08-19 16:10 | XMS_ITS | Clinical Summary ---
Author Organization [facility] Address [address] [facility] Attn: Epic Prelude ADT NADIR ARGUETA [phone] Care Team Providers Care First Crusher Name Role Phone Unavailable Primary Care Provider Unavailabl e Social History Tobacco Use Types Packs/Day Years Used Date Smoking Tobacco: Never Assessed Comments Unknown Sex and Gender Information Value Date Recorded Sex Assigned at Not on file Legal Sex Female 4:43 AM PLASTIC FRAME INSERTER Gender Identity Not on file Sexual Orientation Not on file Plan of Treatment Health Maintenance Due Date Last Done Comments DTAP/TDAP/TD VACCINES (1 - Tdap) 2017 HEPATITIS B VACCINES (1 of 3 - 19+ 3-dose series) 02/2017 CERVICAL CANCER SCREENING 2019 HPV/Cotest (21-29) 2019 PAP SMEAR 2019 INFLUENZA VACCINE (#1) 2025 HPV VACCINES (No Doses Required) Completed
--- OUTSIDE RECORDS SUMMARY | 2025-08-19 16:10 | XMS_ITS | Encounter Summary ---
Author Organization [facility] Address [address] [place] [address] Care Team Providers Care Erp Manager Name Role Phone Unavailable Primary Care Provider Unavailabl e Encounter Details Date Type Department Care Team (Late st Contact Info) Description 05/04/2003 Emergency [facility] Rachel Burgess, GM [address] [facility] [address] [place] [address] Er, Authorized P NO ADDRESS ON FILE ABRASION HAND (Primary Dx) Social History Tobacco Use Types Packs/Day Years Used Date Smoking Tobacco: Never Assessed Comments Unknown Sex and Gender Information Value Date Recorded Sex Assigned at Not on file Legal Sex Female 4:43 AM ELECTRICIAN YARD Gender Identity Not on file Sexual Orientation Not on file documented as of this encounter Plan of Treatment Not on file documented as of this encounter Visit Diagnoses Diagnosis Hand(s) except finger(s) alone, abrasion or friction burn, without mention of infection- Primary documented in this encounter
--- OUTSIDE RECORDS SUMMARY | 2025-08-19 16:10 | XMS_ITS | Clinical Summary ---
Author Organization [facility] Address [facility] [place] [address] Care Team Providers Care Promotional Advertising Assistant Name Role Phone Rosemary Moreno APRN Primary Care Provider [phone] Allergies Active Allergy Reactions Criticality Noted Date Comments Dermatological Products, Misc. Hives 09/11/2024 Allergy to skin and miko post-surgery Medications Probiotic Product (PROBIOTIC ADVANCED) Cap Active TIRZEPATIDE SC 4 Active norethindrone-ethi nyl estradiol-iron (SUMANTH FE 1.530) 1.5-30 MG-MCG tabletIndications: Encounter for contraceptive management, unspecified type TAKE 1 TABLET BY MOUTH DAILY. TAKE CONTINUOUSLY. SKIP PLACEBOS 112 tablet 3 5 Active scopolamine (TRANSDERM-SCOP) 1 MG/3DAYS patchIndications:M otion sickness, initial encounter Place 1 patch onto the skin every third day. 6 patch 5 Active Active Problems Problem Noted Date Diagnosed Date Class 2 obesity due to exces s calories without serious comorbidity with body mass index (BMI) of 35.0 to 35.9 in adult 06/25/2023 BMI 35.0-35.9,adult 06/25/2023 Pes planus of both feet 07/26/2015 Left-sided low back pain without sciatica 2014 Triangular fibrocartilage complex injury 013 Sprain of wrist, right 07/22/2013 Encounters Date Type Department Care Team Description 06/26/2025 8:09 AM CDT - 06/26/2025 11:59 PM CDT Hospital Encounter [facility] MRI [id number] [place] [address] Rosemary Moreno, CARMEN Discharge Disposition: Home or Self Care (Routine Discharge) 06/25/2025 8:38 AM CDT - 06/25/2025 11:59 PM CDT Hospital Encounter [facility] [id number] [place] [address] Rosemary Moreno, Jasmina Jacinto, RD Discharge Disposition: Home or Self Care (Routine Discharge) 06/25/2025 Travel 06/10/2025 Results Follow-Up [facility] Internal [address] [phone] Rosemary Moreno APRN COMPREHENSIVE METABOLIC PANEL, CBC W/DIFF AUTOMATED, TSH W/REFLEX, Additional followed-up results: 3 06/09/2025 1:02 PM CDT - 06/09/2025 11:59 PM CDT Hospital Encounter [facility] [address] [place] [address] Doni Valente MD Menendez, Katie A, CARMEN Discharge Disposition: Home or Self Care (Routine Discharge) 06/09/2025 10:00 AM CDT Laboratory Only [facility] [address] [phone] Rosemary Moreno APRN 06/09/2025 8:40 AM CDT Office Visit [facility] [address] [phone] Rosemary Moreno APRN Follow Up (Medication management ) 06/09/2025 Travel from Last 3 Months Immunizations Immunization Administration Dates Next Due Dtap 01/04/2004, 0,05/12/1999,1998 ,1998 Dtap (Acel-Immune) 01/04/2004, 0,05/12/1999,1998 ,1998 Fluarix 11/18/2019(Deferred: Patient Ref used) Hepatitis A (Generic) 04/09/2013,09/13/2011 Hepatitis A (Havrix [address]) 04/09/2013, 012 Hepatitis B Pediatric 03/11/1999,1998,02/1998 Hib 03/13/2000,05/12/1999,1998 ,1998 Hib (Generic) 03/13/2000,05/12/1999,1998 ,1998 MMR 01/04/2004,06/14/1999 MMR (MMRII) 01/04/2004,06/14/1999 Menactra 10/29/2014 Meningococcal (Menactra) 10/29/2014,04/16/2010 Meningococcal(Mcv 4)Aka Menactra 04/16/2010 Polio IPV (Ipol) 01/04/2004,11/02/1999, 9,1998 Tdap (Adacel) 11/18/2019 Tdap (Generic) 04/16/2010 Varicella (Varivax) 04/16/2010,11/02/1999 Varicella Vaccine 04/16/2010,11/02/1999 Family History Medical History Relation Comments Alzheimers Maternal Grandfather Arthritis Maternal Grandmother Cancer Maternal Grandmother breast Miscarriages / Stillbirths Paternal Aunt COPD Paternal Grandfather Diabetes Paternal Grandmother type 2 Relation Status Comments Father Alive Maternal Grandfather Maternal Grandmother Mother Alive Paternal Aunt Alive Paternal Grandfather Paternal Grandmother Alive Social History Tobacco Use Types Packs/Day Years Used Date Smoking Tobacco: Some Days Cigarettes 0.7 7.5 Started: 2017; Last attempted to quit: 01/23/2024 Passive Smoke Exposure: Current Smokeless Tobacco: Never Tobacco Cessation:Ready to Q uit: No; Counseling Given: Yes Comments:minmal use Alcohol Use Standard Drinks/Week Comments Not Currently 0 (1 standard drink = 0.6 oz pur e alcohol) social PHQ-2 Answer Date Recorded Patient Health Questionnaire-2 Score 0 09/14/2023 Hunger Vital Sign Answer Date Recorded Within the past 12 months, y ou worried that your food would run out before you got the money to buy more. Never true 09/24/19 Within the past 12 months, t he [...] place to sleep or slept in a detention (including now)? No 09/24/2022 Hunger Vital Sign Answer Date Recorded Within the past 12 months, y ou worried that your food would run out before you got the money to buy more. Never true 06/25/20 Within the past 12 months, t he food you bought just didn't last and you didn't have money to get more. Never true 06/25/2025 PRAPARE - Transportation Answer Date Re corded In the past 12 months, has l ack of transportation kept you from medical appointments or from getting medications? No 06/04 In the past 12 months, has l ack of transportation kept you from meetings, work, or from getting things needed for daily living? No 06/25/2025 Comments No Sex and Gender Information Value Date Recorded Sex Assigned at Not on file Legal Sex Female 7:00 PM CDT Gender Identity Not on file Sexual Orientation Not on file Last Filed Vital Signs Vital Sign Reading Time Taken Comments Blood Pressure 118/76 06/09/2025 8:40 AM CDT Pulse 104 06/09/2025 8:40 AM CDT Temperature 36.2 C (97.2 F) 06/09/2025 8:40 AM CDT Respiratory Rate 16 06/09/2025 8:40 AM CDT Oxygen Saturation 93% 06/09/2025 8:40 AM CDT Inhaled Oxygen Concentration - - Weight 63.5 kg (140 lb) 06/09/2025 8:40 AM CDT Height 152.4 cm (5') 06/09/2025 8:40 AM CDT Body Mass Index 27.34 06/09/2025 8:40 AM CDT Plan of Treatment Upcoming Encounters Date Type Department Care Team (Late st Contact Info) Description 10/13/2025 7:00 AM VIDEOTAPE SALES REPRESENTATIVE Office Visit [facility] Family & Internal Medicine - [place] [address] [place] [address] Rosemary Moreno APRN [address] [facility] [address] [place] [address] Health Maintenance Due Date Last Done Comments PHQ-2 (Physician [place] [facility]) 09/03/2024 09/14/2023 Cervical Cancer Screening Pap Smear (Age 21 to 29) Every 3 Years 04/27/2025 04/27/2022, 02/18/2020 Cervical Cancer Screening 04/27/2025 Influenza Adult (#1) 2025 HPV Vaccines (1 - 3-dose SCDM series) 2025 Annual Physical 09/11/2025 09/11/2024, 06/04, 04/27/2022, Additional history exists COVID-19 Vaccine ( - season) 2026 Postponed from 05/04/2025 (Patient Refused) DTaP, Tdap and Td Vaccines (8 - Td or Tdap) 11/17/2029 11/18/2019, 04/16/2010, 01/04/2004, Additional history exists Hepatitis C 09/11/2054 Postponed from 2016 (Patient Refused) Pneumococcal Vaccine: Pediatrics (0 to 5 Years) and At-Risk Patients (6 to 49 Years) (1 of 2 - PCV) 04/19/2061 Postponed from 2017 (Future Appointment) Hepatitis B Vaccines Completed 03/11/1999, 1998, 1998 Hepatitis A Vaccines Completed 04/09/2013, 04/09/2013, 09/13/2011, Additional history exists Meningococcal Vaccine Completed 10/29/2014 , 10/29/2014, 04/16/2010 Chlamydia Screening Females ages 16-24 Discontinued 04/27/2022 Meningococcal B Vaccine Aged Out No l onger eligible based on patient's age to complete this topic RSV Immunizations Under 20 Months Aged Out No longer eligible based on patient's age to complete this topic Procedures Procedure Name Priority Date/Time Associated Diagnosis Comments MRI LUMB SPINE WO CON Routine 06/26/2025 9:03 AM CDT Chronic left-sided low back pain without sciatica COLLECTION VENOUS BLOOD VENIPUNCTURE Routine 06/09/2025 10:04 AM CDT Moderate mixed hyperlipidemia not requiring statin therapy Vitamin D deficiency Thyroid disorder screen Elevated platelet count HC LIPID PANEL Routine 06/09/2025 9:57 AM CDT Moderate mixed hyperlipidemia not requiring statin therapy HC VITAMIN D 25 OH Routine 06/09/2025 9: 57 AM CDT Vitamin D deficiency TSH W/REFLEX Routine 06/09/2025 9:57 AM CDT Thyroid disorder screen HC CBC AUTO W/AUTO DIFF Routine 06/09/2025 9:57 AM CDT Moderate mixed hyperlipidemia not requiring statin therapy Elevated platelet count HC COMPREHENSIVE METABOL PANEL Routine 06/09/2025 9:57 AM CDT Moderate mixed hyperlipidemia not requiring statin therapy Elevated platelet count THINPREP PAP W AGED BASED SCREEN CT/NG TRICH Routine 04/27/2022 11:49 AM CDT Cervical cancer screening from Last 3 Months or Most Recently Relevant to Health Maintenance Results * MRI LUMB SPINE WO CON (06/26/2025 9:03 AM CDT) Anatomical Region Laterality Modality Spine Magnetic Resonan ce 06/29/2025 10:5 5 AM CDT Impressions 06/30/2025 9:33 AM CDT IMPRESSION: UNREMARKABLE MRI OF THE LUMBAR SPINE. The attending radiologist has reviewed the image(s) and agrees with the content of this report. Ordered By: ROSEMARY MORENO Interpreted By: Willi Wynne MD, 06/29/2025 10:55 AM Narrative 06/30/2025 9:33 AM CDT [facility] [address] [place] [address] EXAMINATION: MRI lumbar spine without contrast. INDICATION: CHRONIC BACK PAIN >1 YEAR COMPARISON: None TECHNIQUE: MRI of the lumbar spine was obtained without administration of intravenous contrast according to routine protocol. FINDINGS: There are 5 lumbar type vertebral bodies designated as L1 through L5; using this numbering system, the conus medullaris terminates at L1 and iliolumbar ligament is at L5. Intervertebral disc signal characteristics and morphology is unremarkable. The lumbar vertebral alignment is maintained. The vertebral body heights and marrow signal are maintained. Facet alignment is preserved. Visualized portions of the soft tissues reveal no abnormalities. T12-L1: No spinal canal stenosis or neuroforaminal narrowing. L1-L2: No spinal canal stenosis or neuroforaminal narrowing. L2-L3: No spinal canal stenosis or neuroforaminal narrowing. L3-L4: No spinal canal stenosis or neuroforaminal narrowing. L4-L5: Mild posterior disc bulge. No spinal canal stenosis or neuroforaminal narrowing. L5-S1: Mild posterior disc bulge. No spinal canal stenosis or neuroforaminal narrowing. Procedure Note Doni Luis MD - 06/30/2025 [facility] [address] [place] [address] EXAMINATION: MRI lumbar spine without contrast. INDICATION: CHRONIC BACK PAIN >1 YEAR COMPARISON: None TECHNIQUE: MRI of the lumbar spine was obtained without administration ofintravenous contrast according to routine protocol. FINDINGS: There are 5 lumbar type vertebral bodies designated as L1 through L5;using this numbering system, the conus medullaris terminates at L1 andiliolumbar ligament is at L5. Intervertebral disc signal characteristicsand morphology is unremarkable. The lumbar vertebral alignment ismaintained. The vertebral body heights and marrow signal are maintained.Facet alignment is preserved. Visualized portions of the soft tissuesreveal no abnormalities. T12-L1: No spinal canal stenosis or neuroforaminal narrowing. L1-L2: No spinal canal stenosis or neuroforaminal narrowing. L2-L3: No spinal canal stenosis or neuroforaminal narrowing. L3-L4: No spinal canal stenosis or neuroforaminal narrowing. L4-L5: Mild posterior disc bulge. No spinal canal stenosis orneuroforaminal narrowing. L5-S1: Mild posterior disc bulge. No spinal canal stenosis orneuroforaminal narrowing. IMPRESSION: UNREMARKABLE MRI OF THE LUMBAR SPINE. The attending radiologist has reviewed the image(s) and agrees with thecontent of this report. Ordered By: ROSEMARY MORENO Interpreted By: Willi Wynne MD, 06/29/2025 10:55 AM Rosemary Moreno LEGAL INTERNSHIP MRI Final Resu lt * TSH W/REFLEX (06/09/2025 9:57 AM CDT) TSH 3.393 0.358 - 3.74 uIU/ML 06/09/2025 2:13 PM CDT [facility] Comment: HIGH DOSES OF BIOTIN MAY INTERFERE WITH THIS TEST RESULT. CORRELATION TO CLINICAL HISTORY AND PRESENTATION RECOMMENDED. FREE T4 NOT INDICATED 06/09/2025 9:57 AM CDT Rosemary Moreno LEGAL INTERNSHIP LABORATORY Final Resu lt [facility] [address] [place] [address], [place] [phone] * (ABNORMAL) COMPREHENSIVE METABOLIC PANEL (06/09/2025 9:57 AM CDT) GLUCOSE 80 70 - 99 MG/DL 06/09/2025 2:13 PM CDT [facility] BUN 8 7 - 18 MG/DL 06/09/2025 2:13 PM CDT [facility] CREATININE S/P/B 0.57 0.55 - 1.02 MG/DL 06/09/2025 2:13 PM T [facility] SODIUM S/P/B 138 136 - 145 MMOL/L 06/09/2025 2:13 PM T [facility] POTASSIUM S/P/B 4.5 3.5 - 5.1 MMOL/L 06/09/2025 2:13 PM T [facility] CHLORIDE S/P/B 104 100 - 108 MMOL/L 06/09/2025 2:13 PM T [facility] CO2 25.7 21 - 32 MMOL/L 06/09/2025 2:13 PM T [facility] CALCIUM S/P/B 8.6 8.5 - 10.1 MG/DL 06/09/2025 2:13 PM T [facility] BILIRUBIN TOTAL S/P/B 0.5 0.2 - 1.2 MG/DL 06/09/2025 2:13 PM [facility] TOTAL PROTEIN S/P/B 7.1 6.4 - 8.2 G/DL 06/09/2025 2:13 PM T [facility] ALBUMIN S/P/B 3.6 3.4 - 5.0 G/DL 06/09/2025 2:13 PM T [facility] AST 10(L) 15 - 37 U/L 06/09/2025 2:13 PM [facility] ALT 13(L) 14 - 55 U/L 06/09/2025 2:13 PM T [facility] ALKALINE PHOSPHATASE S/P/B 49(L) 50 - 136 U/L 06/09/2025 2:13 PM CDT [facility] ANION GAP 8.3 5 - 15 MMOL/L 06/09/2025 2:13 PM T [facility] BUN CREATININE RATIO 14.0 6 - 26 06/09/2025 2:13 PM CDT [facility] A/G RATIO 1.0 1.0 - 2.0 RATIO 06/09/2025 2:13 PM T [facility] GFR ESTIMATE >90 >90 ML/MIN/1.7 3 M2 06/09/2025 2:13 PM T [facility] Comment: NOTE: eGFR is not calculated for patients <18 years of age. This is an estimated GFR calculation using the new CKD EPI creatinine equation without race and so does not require a correction factor for race. This estimated GFR should not be used for calculating drug doses. 06/09/2025 9:57 AM CDT us Rosemary Moreno LEGAL INTERNSHIP LABORATORY Final Resu lt [facility] [address] [place] [id number], * (ABNORMAL) LIPID PANEL (06/09/2025 9:57 AM CDT) CHOLESTEROL 210(H) <200.0 MG/DL 06/09/2025 2:13 PM CDT [facility] TRIGLYCERIDES 111 <150 MG/DL 06/09/2025 2:13 PM CDT [facility] HDL 39(L) >40.0 MG/DL 06/09/2025 2:13 PM T [facility] LDL (CALCULATED) 149(H) <100 MG/DL 06/09/2025 2:13 PM CDT [facility] Comment:CALCULATED USING THE FRIEDEWALD EQUATION NON HDL CHOLESTEROL 171(H) <130 MG/DL 06/09/2025 2:13 PM CDT [facility] CHOL/HDL RATIO 5.4(H) 0.0 - 4.5 06/09/2025 2:13 PM CDT [facility] VLDL CALCULATION 22 5 - 55 MG/DL 06/09/2025 2:13 PM CDT [facility] LIPID INTERPRETATION 06/09/2025 2:13 PM CDT [facility] Comment: NIH CONCENSUS REPORT RECOMMENDATIONS: ADULT CHILD LOW RISK: CHOLESTEROL <200 <170 TRIGLYCERIDE <150 --- HDL >=60 --- LDL <100 <110 BORDERLINE: CHOLESTEROL 200-239 170-199 TRIGLYCERIDE 150-199 --- HDL 40-59 --- LDL 100-159 110-129 HIGH RISK: CHOLESTEROL >=240 >=200 TRIGLYCERIDE >=200 --- HDL <40 --- LDL >=160 >=130 06/09/2025 9:57 AM CDT us Rosemary Moreno APRN LABORATORY Final Resu lt [facility] [address] [place] [address], [place] [phone] * (ABNORMAL) CBC W/DIFF AUTOMATED (06/09/2025 9:57 AM CDT) WBC 8.21 4.4 - 11.0 x10'3/uL 06/09/2025 1:44 PM CDT [facility] RBC 4.45(L) 4.50 - 5.10 x10'6/uL 06/09/2025 1:44 PM CDT [facility] HGB 12.9 12.3 - 15.3 G/DL 06/09/2025 1:44 PM CDT [facility] HCT 39.3 35.9 - 44.6 % 06/09/2025 1:44 PM CDT [facility] MCV 88.3 80.0 - 96.0 FL 06/09/2025 1:44 PM CDT [facility] MCH 29.0 25.3 - 30.9 PG 06/09/2025 1:44 PM CDT [facility] MCHC 32.8 31.0 - 34.1 G/DL 06/09/2025 1:44 PM CDT [facility] RDW 12.8 12.4 - 15.1 % 06/09/2025 1:44 PM CDT [facility] PLT 431(H) 151 - 353 x10'3/uL 06/09/2025 1:44 PM CDT [facility] MPV 10.1 9.6 - 12.0 FL 06/09/2025 1:44 PM CDT [facility] RBC MORPHOLOGY NORMAL 06/09/2025 1:44 PM CDT [facility] PLT MORPH. NORMAL 06/09/2025 1:44 PM CDT [facility] WBC MORPHOLOGY NORMAL 06/09/2025 1:44 PM CDT [facility] LYMPHOCYTES % 30.1 15.8 - 45.0 % 06/09/2025 1:44 PM CDT [facility] NEUTROPHILS % 61.4 42.1 - 71.9 % 06/09/2025 1:44 PM CDT [facility] MONOCYTES % 6.7 5.7 - 12.5 % 06/09/2025 1:44 PM CDT [facility] EOSINOPHILS 0.7 0.0 - 5.6 % 06/09/2025 1:44 PM CDT [facility] BASOPHILS 0.7 0.0 - 1.3 % 06/09/2025 1:44 PM CDT [facility] ABS. NEUTROPHILS 5.04 1.40 - 6.00 x10'3/uL 06/09/2025 1:44 PM CDT [facility] IMMATURE GRANS % 0.4 0.0 - 0.5 % 06/09/2025 1:44 PM CDT [facility] ABS. LYMPHOCYTES 2.47 0.80 - 4.70 x10'3/uL 06/09/2025 1:44 PM CDT [facility] 06/09/2025 9:57 AM CDT Rosemary Moreno APRN LABORATORY Final Resu lt Performing Organization Address [facility]/ZIP Co de Phone Number [facility] [address] [place] [address], [place] [phone] * VITAMIN D, 25 OH (06/09/2025 9:57 AM CDT) VITAMIN D 25 HYDROXY S/P/B 32 30 - 100 NG/ML 06/09/2025 2:24 PM CDT [facility] Comment: INTERPRETATION DEFICIENT <20 INSUFFICIENT 20-29 SUFFICIENT 30-100 06/09/2025 9:57 AM CDT Rosemary Moreno APRN LABORATORY Final Resu lt [facility] [address] [place] [address], [place] [phone] * (ABNORMAL) THINPREP PAP W AGED BASED SCREEN CT/NG TRICH ([facility] ONLY) (04/27/2022 11:49 AM CDT) Comment: [facility] Comment: This order for age-based cervical cancer and STI screening follows ACOG guidelines(PB 168, 140, VPD939). See individual assays for performing site location. CLINICAL INFORMATION: Hormone therapy Oral contraceptives HRT [facility] Clinical Information: INFORMATION NOT PROVIDED [facility] Date of Last Pap INFORMATION NOT PROVIDED [facility] Previous Biopsy? INFORMATION NOT PROVIDED [facility] SOURCE (QST) Endocervix [facility] STATEMENT OF ADEQUACY: [facility] Comment: Satisfactory for evaluation. Endocervical/transformation zone component present. Age and/or menstrual status not provided GENERAL CATEGORIZATION: EPITHELIAL CELL ABNORMALITY(A) [facility] PAP INTERPRETATION/RES ULTS Low Grade Squamous Intraepithelial Lesion (LSIL)(A) [facility] COMMENT: [facility] Comment: This Pap test has been evaluated with computer assisted technology. Suggest clinical correlation and follow-up as clinically appropriate PASTEURIZER HELPER [facility] Comment: BEBO TRUJILLO(ASCP) CT Screening location: [address] [place] [address] [place] [address] PATHOLOGIST (T PAP) [facility] Comment: Aly Puga M.D., Board Certified in Anatomic Pathology and Cytopathology. (electronic signature) COMMENT: [facility] Comment: EXPLANATORY NOTE: The Pap is a screening test for cervical cancer. It is not a diagnostic test and is subject to false negative and false positive results. It is most reliable when a satisfactory sample, regularly obtained, is submitted with relevant clinical findings and history, and when the Pap result is evaluated along with historic and current clinical information. CHLAMYDIA TRACHOMATIS RNA TMA NOT DETECTED NOT DETECTED [facility]GONORRHO[facility] RNA TMA (QST) NOT DETECTED NOT DETECTED [facility] COMMENT: [facility] Comment: The analytical performance characteristics of this assay, when used to test SurePath(TM) specimens have been determined by [employer]. The modifications have not been cleared or approved by the FDA. This assay has been validated pursuant to the CLIA regulations and is used for clinical purposes. For additional information, please refer to https://education.[employer]/faq/UHG694 (This link is being provided for information/ educational purposes only.) TRICHOMONAS NOT DETECTED NOT DETECTED [facility] Comment: The analytical performance characteristics of this assay have been determined by [employer]. The modifications have not been cleared or approved by the FDA. This assay has been validated pursuant to the CLIA regulations and is used for clinical purposes. For additional information, please refer to http://education.[employer]/ faq/Trichomonastma (This link is being provided for information/ educational purposes only.) 04/27/2022 11:4 9 AM CDT 04/28/2022 3:30 AM CDT us Mary Ellen HOLT PATHOLOGY/CYTOLOGY ORDERABLE S Final Result [employer] - SUSAN ORDERS [facility] [address] [place] [phone] [facility] [address] [place] [address] from Last 3 Months or Most Recently Relevant to Health Maintenance Insurance [facility] Care Teams Promotional Advertising Assistant Relationship Specialty Start Date End Date Rosemary Moreno APRN [address] [place] [id number] PCP - General NURSE PRACTITIONER 09/20/22
--- OUTSIDE RECORDS SUMMARY | 2025-08-19 16:10 | XMS_ITS | Encounter Summary ---
Author Organization [facility] Address [address] [place] [address] Care Team Providers Care Chair And Couch Maker Name Role Phone Unavailable Primary Care Provider Unavailabl e Encounter Details Date Type Department Care Team (Late st Contact Info) Description 05/05/2003 Outpatient Historical [facility] Burn [id number] [facility] [address] [place] [phone] Lucho Downing MD [address] [facility] [address] [facility] [place] [address] Social History Tobacco Use Types Packs/Day Years Used Date Smoking Tobacco: Never Assessed Comments Unknown Sex and Gender Information Value Date Recorded Sex Assigned at Not on file Legal Sex Female 4:43 AM REDEVELOPMENT SPECIALIST Gender Identity Not on file Sexual Orientation Not on file documented as of this encounter Plan of Treatment Not on file documented as of this encounter Visit Diagnoses Not on filedocumented in this encounter
--- OUTSIDE RECORDS SUMMARY | 2025-08-19 16:10 | XMS_ITS | Encounter Summary ---
Author Organization [facility] Address [address] [place] [address] Care Team Providers Care Machine Burrer Name Role Phone Bethany Moreno APRN Primary Care Provider [phone] Encounter Details Date Type Department Care Team (Late st Contact Info) Description 03/03/2025 SuVoltat Message Enc [facility] Family & Internal Medicine [facility] [id number] [place] [address] Bethany Moreno APRN [id number] [place] [address] Diflucan Social History Tobacco Use Types Packs/Day Years Used Date Smoking Tobacco: Some Days Cigarettes 0.5 5 Started: 2017; Last attempted to quit: 01/23/2024 [...] place to sleep or slept in a [place] health care facility (including now)? No 09/24/2022 Comments No Sex and Gender Information Value Date Recorded Sex Assigned at Not on file Legal Sex Female 7:00 PM CDT Gender Identity Not on file Sexual Orientation Not on file documented as of this encounter Plan of Treatment Upcoming Encounters Date Type Department Care Team (Late st Contact Info) Description 10/13/2025 7:00 AM BEFORE SCHOOL BABYSITTER Office Visit [facility] Family & Internal Medicine [facility] [address] [place] [address] Bethany Moreno APRN [id number] [address] documented as of this encounter Visit Diagnoses Not on filedocumented in this encounter Additional Health Concerns Assessment Noted Time PHQ-9 Depression Total Score: 0 09/28/19 22 9:57 AM BEFORE SCHOOL BABYSITTER documented as of this encounter Care Teams Machine Burrer Relationship Specialty Start Date End Date Bethany Moreno APRN [id number] [address] PCP - General NURSE PRACTITIONER 09/20/22 documented as of this encounter
--- OUTSIDE RECORDS SUMMARY | 2025-08-19 16:10 | XMS_ITS | Encounter Summary ---
Author Organization [employer] Address [address] [place] [address] Care Team Providers Care Golf Course Laborer Name Role Phone Unavailable Primary Care Provider Unavailabl e Encounter Details Date Type Department Care Team (Late st Contact Info) Description 04/23/2004 Emergency [facility] Murtaza Morales MD [facility] [place] [address] Er, Authorized P NO ADDRESS ON FILE DISLOCAT ELBOW NOS-CLOSE (Primary Dx) Social History Tobacco Use Types Packs/Day Years Used Date Smoking Tobacco: Never Assessed Comments Unknown Sex and Gender Information Value Date Recorded Sex Assigned at Not on file Legal Sex Female 4:43 AM ACCOUNTS PAYABLE ASSOCIATE Gender Identity Not on file Sexual Orientation Not on file documented as of this encounter Plan of Treatment Not on file documented as of this encounter Visit Diagnoses Diagnosis Closed unspecified dislocation of elbow- Primary documented in this encounter
--- OUTSIDE RECORDS SUMMARY | 2025-08-19 16:14 | XMS_ITS | Clinical Summary ---
Author Organization [facility] Address [address] [place] [address] Care Team Providers Care Tour Consultant Name Role Phone Pcp, No Primary Care Provider [phone] Allergies No known active allergies Medications norethindrone-e thinyl estradiol-iron (MICROGESTIN FE1.530) 1.5 mg-30 mcg (21)/75 mg (7) tablet TAKE 1 TABLET BY MOUTH DAILY. TAKE CONTINUOUSLY. SKIP PLACEBOS 5 Active albuterol (PROVENTIL HFA) 90 mcg/actuation inhaler Inhale 2 puffs every 4 (four) hours as needed for wheezing or shortness of breath for up to 7 days 6.7 g 5 07/24/20 25 lidocaine HCL (LIDOCAINE VISCOUS) 2 % soln Swish and spit 13.8 mL (276 mg total) every 4 (four) hours as needed (sore throat) for up to 3 days Gargle and Spit solution. Maximum dose: 4 doses in 12-hour period. 100 mL 5 07/20/20 25 azithromycin (ZITHROMAX) 250 MG tablet Take 2 tablets (500 mg total) by mouth daily for 1 day, THEN 1 tablet (250 mg total) daily for 4 days. 6 tablet 5 07/22/20 25 promethazine-de xtromethorphan (PROMETHAZINE-D M) 6.25-15 mg/5 mL syrup Take 5 mL by mouth every 6 (six) hours as needed for cough for up to 7 days 118 mL 5 07/24/20 25 Encounters Date Type Department Care Team Description 07/17/2025 9:30 AM HST Office Visit [facility] [id number] [address] [facility] [place] [address] Lucho Freitas NP Acute bronchitis, bacterial (Primary Dx); Sore throat; Chest congestion; Shortness of breath; Acute cough 07/17/2025 8:30 AM PST E-Visit [facility] [address] [place] [address] Sarah Kirkland NP Sore throat (Primary Dx); Cough, unspecified type from Last 3 Months Social History Tobacco Use Types Packs/Day Years Used Date Smoking Tobacco: Every Day E-cig/Vape Smokeless Tobacco: Never Tobacco Cessation:Ready to Q uit: No; Counseling Given: Yes Comments No Sex and Gender Information Value Date Recorded Sex Assigned at Not on file Legal Sex Female 11:23 AM EST Gender Identity Not on file Sexual Orientation Not on file Last Filed Vital Signs Vital Sign Reading Time Taken Comments Blood Pressure 120/88 07/17/2025 8:49 AM HST Pulse 99 07/17/2025 8:49 AM HST Temperature 36.9 C (98.5 F) 07/17/2025 8:49 AM HST Respiratory Rate 18 07/17/2025 8:49 AM HST Oxygen Saturation 97% 07/17/2025 8:49 AM HST Inhaled Oxygen Concentration - - Weight 61.2 kg (135 lb) 07/17/2025 8:49 AM HST Height 152.4 cm (5') 07/17/2025 8:49 AM HST Body Mass Index 26.37 07/17/2025 8:49 AM HST Plan of Treatment Health Maintenance Due Date Last Done Comments Depression: Screening Annual ly using PHQ-2/9 in Adults 18 yrs or above (or HM Modifier)([facility]) 2016 Hepatitis C Virus Infection in Adolescents and Adults: Screening (or Modifier) ([facility]) 2016 SDOH Screening Reminder: Joan edgar for all adults ([facility]) 2016 Pneumococcal Vaccination Scr eening: Pts 0-19 & 19-49 yrs of age ([facility]) (1 of 2 - PCV) 2017 Cervical Cancer: hrHPV alone or with cotesting Pap for Pts 30-65yrs screening every 5yrs ([facility] ) 2019 Flu Vaccination: Yearly for ages 18mos through 64 years (or Modifier)([facility]) 04/03/2025 Cervical Cancer Screenin 1-65 yrs of age (or Modifier) 04/27/2025 Cervical Cancer Screening: P ap every 3 yrs pts age 21-65 04/27/2025 04/27/2022 Cervical Cancer: Pap Screeni ng with Modifier timing ([facility]) 04/27/2025 04/27/2022 COVID-19 Vaccine Screening: Initial Series and Booster Status ([facility]) ( season) 2025 Tobacco Smoking Cessation: i n Adults excluding Women: Behavioral and Pharmacotherapy Interventions ([facility]) 07/17/2026 07/17/2025 DTaP/Tdap/Td Vaccines ([facility]) (8 - Td or Tdap) 11/17/2029 11/18/2019, 04/16/2010, 01/04/2004, Additional history exists Zoster/Shingles Vaccine Seri es Screening: Adults aged 18+ yrs (or HM Modifiers)([facility]) (1 of 2) 2048 04/16/2010, 11/02/1999 Medical Devices Not on file Procedures Procedure Name Priority Date/Time Associated Diagnosis Comments STREP MOLECULAR POCT Routine 07/17/2025 8:57 AM HST Sore throat from Last 3 Months Results * POCT Strep Molecular (07/17/2025 8:57 AM HST) Pathologist [facility] POC MOLECULAR STREP A Negative Negative, Invalid, Not Tested, ERRONEOUS ARNAVNCRAMILA JJ [id number] INTERNAL CONTROLS VALID Yes--Test working appropriately ARNAVNCRAMILA Ma[employer] [id number] Expiration Date 07/20/2026 [employer]E [id number] Lot Number [id number] ARNAVNCRAMILA [employer] [id number] TEST BRAND NAME_ STREP MOLECULAR ID Now Strep ARNAVALIARAMILA PARVIZ [id number] Throat 07/17/2025 8:57 AM HST Lucho Freitas NP POINT OF CARE TEST ORDERABLES Fi nal Result IGNACIO JJ [id number] [address] [place] [address], from Last 3 Months Insurance [facility] Care Teams Tour Consultant Relationship Specialty Start Date End Date Pcp, No PCP - General Family Medicine 07/17/25
--- OUTSIDE RECORDS SUMMARY | 2025-08-19 16:14 | XMS_ITS | Data Portability ---
Author Organization [employer] , [facility] Address [address] [place] [address] Assessment Encounter Date Assessment Date Assessment LastModified by Organization Details LastModified Time 06/29/2022 06/29/2022 Pt was referred here from her PCP. Her PCP did a Pap in May and it came back as LSIL. Pt states she has had a PAP smear every year since the age 19 and they have all been normal. According to ASCCP Guidelines- Recommendation on 1 year follow up for Cytology screening. [email or web address] Not available 06/29/2022 14:34:55 Plan of Treatment Reminders Order Date Submit Date Provider Last Modified By Organization Details Last Modified Time Details Appointments None recorded. Lab unlisted lab - Pap reflex hold 2022 023 [facility], [address] [place] [address], [address], 3 15:37:51 pap, LB 2022 023 [facility], [address] [place], [address], 3 18:18:13 Referral None recorded. Procedures None recorded. Surgeries None recorded. Imaging None recorded. Medication Orders None recorded. Patient TargetsNo targets recorded. Patient Instructions Encounter Date Encounter Id Patient Instructions Last Modified By Organization Details Last Modified Time 06/29/2022 [id number] abnormal Pap test: care instructions [email or web address] Not available 06/29/2022 16:18:01 abnormal Pap smear education [email or web address] Not available 06/29/2022 16:18:01 07/12/2023 [id number] A healthy lifestyle: care instructions Not available 07/12/2023 16:45:18 exercise program : getting started Not available 07/12/2023 16:45:18 Reason for Referral None Reported. Results Created Date Observation Date Name Description Value Unit Range Abnormal Flag Note LastModifiedBy Organization Detail LastModifiedTime 07/12/2007/18/2023 THINP REP TIS PAP clinical information: normal None given Not Available [address], [address], 07/18/2023 18:18:13 07/12/2007/18/2023 THINP REP TIS PAP LMP: normal NONE GIVEN Not Available [address], [address], 07/18/2023 18:18:13 07/12/2007/18/2023 THINP REP TIS PAP prev. Pap: normal NONE GIVEN Not Available [address], [address], 07/18/2023 18:18:13 07/12/2007/18/2023 THINP REP TIS PAP prev. BX: normal NONE GIVEN Not Available [address], [address], 07/18/2023 18:18:13 07/12/2007/18/2023 THINP REP TIS PAP source: normal Vagin a Not Available [address], [address], 07/18/2023 18:18:13 07/12/2007/18/2023 THINP REP TIS PAP statement of adequacy: normal Satis facto ry for evalu ation . Endoc ervic al/tr ansfo rmati on zone compo nent absen t. Age and/o r menst rual statu s not provi ded Not Available [address], [address], 07/18/2023 18:18:13 07/12/20 23 07/18/2023 THINP REP TIS PAP interpretati on/result: normal Cytol ogy Resul ts: Negat brenden for intra epith elial lesio n or malig natasha . Not Available [address] [address] [place], [address], 07/18/2023 18:18:13 07/12/20 23 07/18/2023 THINP REP TIS PAP comment: normal This Pap test has been evalu ated with arian mercer techn ology . Not Available [address] [address] [place], [address], 07/18/2023 18:18:13 07/12/2007/18/2023 THINP REP TIS PAP cytotechnolo gist: normal SXW, CT( CP) CT Scree christina Locat ion: [facility] [address] [place] [facility] [place] [address] Not Available [address] [address] [place], [address], 07/18/2023 18:18:13 07/12/2007/18/2023 THINP REP TIS PAP review cytotechnolo gist: normal DXP, CT( CP) CT Scree christina Locat ion: [facility] [address] [place] [facility] [place] [address] Not Available [address] [address] [place], [address], 07/18/2023 18:18:13 07/12/2007/18/2023 THINP REP TIS PAP comment EXPLA NATOR Y NOTE: The Pap is a scree christina test for cervi chin cance r. It is not a diagn ostic test and is subje ct to false negat brenden and false posit brenden resul ts. It is most relia ble when a satis facto ry sampl e, regul josseline obtai tiffany, is submi tted with relev ant clini chin findi ngs and histo ry, and when the Pap resul t is evalu ated along with histo binh and curre nt clini chin infor shiv n. Not Available [facility] [address] [address] , [place], [address], 07/18/2023 18:18:13 Result Notes None recorded. Procedures Surgical History Date Name Laterality Status Provider Name and Address Organization Details Recorded Time 04/27/20 Date of Last Pap Smear completed Afia Cross [facility] 07/12/2023 16:27:37 tonsillectomy completed Bethany [email or web address] [facility] 06/29/2022 14:10:11 extraction of wisdom tooth completed [facility] 06/29/2022 14:10:19 Imaging Results None recorded. Procedure Notes None recorded. Medical Equipment None Reported. Allergies No known drug allergies Medications Name Sig Start Date Stop Date Status Note LastModified by Organization Details LastModified Time azithromyci n 250 mg tablet TAKE 2 TABLETS BY MOUTH FOR 1 DAY THEN TAKE 1 TABLET BY MOUTH DAILY FOR 4 DAYS 07/12 completed Not Available Not Available Not Available fluconazole 150 mg tablet TAKE 1 TABLET BY MOUTH NOW 07/12 completed Not Available Not Available Not Available hydrocodone 5 mg-acetamin ophen 325 mg tablet TAKE 1 TABLET BY MOUTH EVERY 6 HOURS NEEDED FOR PAIN 06/29 completed Not Available Not Available Not Available prednisone 20 mg tablet TAKE 2 TABLETS BY MOUTH DAILY 06/29 completed Not Available Not Available Not Available clonazepam 0.5 mg tablet active Not Available Not Available Not Available prednisone 50 mg tablet TAKE 1 TABLET BY MOUTH DAILY FOR 5 DAYS 07/12 completed Not Available Not Available Not Available methylpredn isolone 4 mg tablets in a dose pack FOLLOW PACKAGE DIRECTION S 07/12 completed Not Available Not Available Not Available albuterol sulfate HFA 90 mcg/actuati on aerosol inhaler INHALE 2 PUFFS BY MOUTH EVERY 6 HOURS NEEDED FOR WHEEZING active Not Available Not Available No t Available .5 (28) 1.5 mg-30 mcg (21)/75 mg (7) tablet TAKE 1 TABLET BY MOUTH DAILY. TAKE CONTINUOU SLY active Not Available Not Available No t Available Saxenda 3 mg/0.5 mL (18 mg/3 mL) subcutaneou s pen injector active Not Available Not Available Not Available BD Madeleine 2nd Gen Pen Needle 32 gauge x active Not Available Not Available Not Available Vitals Date Recorded Body height Body mass index (BMI) Body weight Body temperature Provider Name and Address Organization Details Last Updated DateTime 06/29/2022 152.4 cm 30 kg/m2 01882.07 g 97.7 [degF] Bethany Carlson [facility] [employer] [facility] 06/29/2022 14:11:29 Date Recorded Body height Body mass index (BMI) Body weight Body temperature Systolic And Diastolic Provider Name and Address Organization Details Last Updated DateTime 07/12/2023 152.4 cm 34.9 kg/m2 72979.3 2 g 98.1 [degF] 122/74 mm[Hg] Afia Cross [facility] [employer] [facility] 16:24:54 Social History Question Answer Notes LastModified by Organizat ion Details LastModified Time Tobacco Smoking Status Current Every Day Smoker Bethany [facility], [facility] [employer] [facility] 06/29/2022 14:09:50 Are You Blind Or Do You Have Difficulty Seeing? No Information not available 06/29/2022 Are You Deaf Or Do You Have Serious Difficulty Hearing? No Information not available 06/29/2022 Which Illicit Or Recreational Drugs Have You Used? Marijuana Information not available 06/29/2022 What Is Your Relationship Status? Single Information not available 06/29/2022 Are You Sexually Active? Yes Information not available 06/29/2022 At What Age Did You Start Smoking Tobacco? 18 Information not available 06/29/2022 Have You Used IV Drugs? No Information not available 06/29/2022 Sex: Unknown Functional Status Question Answer Note LastModified by Organizat ion Details LastModified Time Do you use any illicit or recreational drugs? Yes Information not available 07/12/2023 Do you or have you ever used any other forms of tobacco or nicotine? No Information not available 06/29/2022 What is your level of alcohol consumption? None Information not available 06/29/2022 Mental Status None recorded. Family History Relationship Description Onset Age of this Age Resolved Age Notes LastModified by Organization Details LastModified Time Father No current problems or disability Not available 14:09:24 Mother No current problems or disability Not available 14:09:24 Medical History No medical history recorded. Gynecological History Statement/Question Response HPV Vaccine N Date of Last Pap Smear 04/27/2022 Current Control Method BCPs Date of LMP 06/18/2023 Obstetrics History GPAL:G 0 P 0 0 0 0 Past Encounters Encounter ID Performer Location Encounter Start Date Encounter Closed Date Diagnosis/Indication Diagnosis SNOMED-CT Code Diagnosis ICD10 Code Diagnosis IMO Codes Diagnosis Note [id number] KALPANA [facility]ES[facility] [address] [place] [address] 06/29/2022 13:45:49 06/29/2022 16:25:04 Low grade squamous intraepithelial lesion on cervical Papanicolaou smear 9218479037 9105 R87.816 [id number] JAMES REYES [facility] [address] [place] [address] 07/12/2023 16:14:52 07/13/2023 12:15:56 Gynecologic examination 98343003 Z01.419 Patient is an establishe d patient who presents for a gynecologi chin Annual Exam. Medical, family and social history reviewed. The patient denies any changes. Adequate changes were made. A nnual Exam:She reports having no significan t BARK GRINDER symptoms.H er menses are regular, occurring every 1 month(s). Menses lasts for 3 or 4 days. Reports they are not heavy or painful. Denies spotting in between.Pt is currently using OCPS for contracept ion. She is satisfied with her current method. managed by PCP. P ap History: 05/2022 LSILShe is due for papCollect ed Today B reast History:Sh e denies breast symptoms. Education on Breast Self Awareness given.Mariana ent is under 40-mammogr am not indicated F amily History:Ne gative for Breast Cancer, Cervical Cancer, Colon Cancer, Endometria l Cancer and Ovarian Cancer. Social History:Sh maxx is currently sexually active. She denies complaints about sexual activity. Patient reports feeling safe at home from emotional, physical, and verbal abuse.She does not desire STD testing. E xercise: Occasional She wears her seat belt. She does not text and drive.The patient denies smoking and recreation al drugs. She denies drinking alcohol. P kalpana is regularly seen by PCP for preventati ve care: Yes Screening for malignant neoplasm of cervix 963913271 Z12.4 ASCCP guidelines reviewed with pt. Pap collected and sent. Further POC pending lab result review. Pt states understand ing of POC. Screening for malignant neoplasm of breast 929048072 Z12.39 Pt educated on breast cancer screening guidelines . Denies any concerns with breast at this time. Denies any lumps, bumps, nipple discharge or unusual soreness. Pt states understand ing of POC. Surveillan ce of contraception 369745693 Z30.40 Pt educated on risks Vs benefits of use, and reviewed ACHES symptoms. Importance of daily administra tion within the same 30 minute time frame reinforced to pt, and on use of condoms or abstinence if dosing schedule is interrupte d. Refills sent. Plan to F/U PRN or at next [employer]. Venereal d isease screening 427612094 Z11.3 Pt educated on importance of condom use for protection against STD's. Samples collected and sent. Further POC pending lab result review. Pt states understand ing of POC. Depression screening 171 124689 Z13.31 PHQ9: 0. Pt educated on normal scoring, and discussed depression precaution s and when to notify HCP/go to ER. Health Concerns Section Related Observation LastModified by Organization Detai ls LastModified Time None Recorded Concern Status LastModified by Organization Details LastModified Time None Recorded Advance Directives Directive None Recorded Payers Insurance Date Sequence Insurance Name Policy Number Policy Marin Covered Member ID Marin Member ID Guarantor Name 04/24/2023 1 [employer] [facility] [id number] Yesenia Oro [id number] Yesenia Oro 07/12/2023 1 [place] [id number] Yesenia Oro [id number] Yesenia Oro Notes Date Note Type Note Provider Name and Address Organization Details Recorded Time 2 text/html Annual GYNReported by PatientGenitourinary symptomsFor menstrual cycle, patient reportsnormal menses. For urinary symptoms, patient reportsno hematuriaandno incontinence. For vulva, patient reportsno genital lesion. For vagina, patient reportsnormal vaginal discharge.Breast symptomsFor breast, patient reportsno breast pain,no breast lump, andno nipple discharge.Psychological symptomsFor psychological symptoms, patient reportsno depression,no anxiety, andno pmdd.Preventative measuresFor preventive measures, patient reportsencourage self breast examination,encourage regular exercise, andencourage no tobacco use.ROS as noted in the HPI KALPANA HAYNES-[facility] [address] [facility], [place], [address], [facility] [employer] 06/29/2022 16:18:56 3 text/html Annual GYNReported by Patient Pt here for AEX.Pt had abnormal pap on 04/27/22.Pt declined STD/STI testing via culture and serum.Pt has no other questions or concerns. JAMES REYES [address] [facility], [place], [address], [facility] [employer] 07/12/2023 16:45:29 OBGyn Episode No OBEpisode recorded.
== END 2025-08-19 14:11 | disposition home or self-care (01) ==
PROVIDERS: PCP Registered Nurse
DX: H92.02 Otalgia, left ear (principal); F17.290 Nicotine dependence, other tobacco product, uncomplicated; F12.90 Cannabis use, unspecified, uncomplicated
CPT/HCPCS: 99213; G0463